=== PATIENT | female | born 1965 | race African-American/Black ===

== ENCOUNTER → 2016-10-05 | Outpatient (CLI) | payer OTHER ==
[2015-10-22 19:00] VITALS: BP 163/96
[~2016-10-05] MED LIST: ALBU0.63 IH; ATEN25TA PO; ESOM40CA PO; FLUT1DIS5 IH; FURO-68 PO; LEVO500T38 PO; LOSA100T6; METF500T4 PO; PRED50TA PO; PROAIR HFA8.5 GM IH; SPIR25TA3 PO; VENTOLIN HFA18 GM IH
--- NOTE | 2016-10-05 15:03 | RAD ---
DATE: 10/05/16 EXAM: DIGITAL DIAGNOSTIC LT HISTORY: History of right breast cancer status post mastectomy COMPARISON: Diagnostic left mammogram from 04/04/15 This study was interpreted with the benefit of Computerized Aided Detection (CAD). TECHNIQUE: Routine CC and MLO views of the left breast are obtained. FINDINGS: The breast tissue density is [B ] . shows scattered fibroglandular densities, category B. There are no dominant suspicious masses, suspicious microcalcifications or evidence of architectural distortion. Stable benign calcifications are present. The skin and nipples are intact IMPRESSION: Benign findings BI-RADS CATEGORY: 2 BENIGN FINDING(S) RECOMMENDED FOLLOW-UP: 12M 12 MONTH FOLLOW-UP PQRS compliance statement: Patient information was entered into a reminder system with a target due date for the next mammogram. Mammography is a sensitive method for finding small breast cancers, but it does not detect them all and is not a substitute for careful clinical examination. A negative mammogram does not negate a clinically suspicious finding and should not result in delay in biopsying a clinically suspicious abnormality. "Our facility is accredited by the [employer] Mammography Program."
== END | disposition home or self-care (01) ==
LOC: MAMMO 16:05
PROVIDERS: ATTEND Internal Medicine
DX: C50.411 Malignant neoplasm of upper-outer quadrant of right female breast (principal)
CPT/HCPCS: G0206; 77065

== ENCOUNTER → 2017-07-12 | Outpatient (CLI) | payer OTHER ==
[2015-10-22 19:00] VITALS: BP 163/96
[~2017-07-12] MED LIST changes: +CONTRAST GIVEN MC PRN; +IOHEXOL 240 MG/ML 50ML VIAL. PO ONE; +IOHEXOL 300 MG/ML 100ML VIAL. IV ONE; -LEVO500T38 PO; +LEVO500T59 PO
--- NOTE | 2017-07-12 12:11 | RAD ---
Indication: Staging breast carcinoma. Axial imaging through the chest, abdomen and pelvis was performed after the administration of intravenous contrast. CT chest: Postsurgical changes of right mastectomy are noted. There are multiple surgical clips in the right axilla. Small lymph nodes are identified in the left axilla. No definite internal mammary lymphadenopathy is seen. No mediastinal or hilar lymphadenopathy is detected. No pericardial or pleural fluid is identified. No parenchymal mass, infiltrate or nodule is seen. Impression: Postop changes of right mastectomy and right axillary lymph node dissection. No definite evidence of thoracic lymphadenopathy or pulmonary metastatic disease is seen. CT abdomen and pelvis: No discrete liver mass is identified. The gallbladder is unremarkable. The pancreas and spleen are unremarkable. No adrenal mass is detected. The kidneys are unremarkable. The aorta is nonaneurysmal. No central retroperitoneal or mesenteric lymphadenopathy is seen. The visualized small and large bowel loops are normal caliber. The appendix is unremarkable. There is no ascites. No pelvic lymphadenopathy is seen. Uterus, ovaries and bladder are unremarkable. The bony structures are unremarkable. Impression: Unremarkable CT of the abdomen and pelvis. There is no evidence of lymphadenopathy or metastatic disease. PQRS Compliance Statement: One or more of the following individualized dose reduction techniques were utilized for this examination: 1. Automated exposure control 2. Adjustment of the mA and/or kV according to patient size 3. Use of iterative reconstruction technique
--- NOTE | 2017-07-12 13:33 | RAD ---
Indication: Breast carcinoma. The patient was administered 25 mCi technetium 99m MDP intravenously and whole-body imaging was performed after a 3 hour delay. Comparison is made with prior bone scan from 03/09/2016. There is uptake of activity by the axial and appendicular skeleton. There is uptake by both kidneys with excretion into the urinary bladder. Uptake involving bilateral knees, predominantly involving the medial compartments is noted, likely on a degenerative basis. There are also degenerative changes bilateral shoulders and feet. Mild uptake lower lumbar spine is also seen, likely owing to degenerative facet changes. No abnormal focus of tracer accumulation is seen to suggest occult fracture or osseous metastatic disease. Impression: Chronic changes. No scintigraphic evidence of osseous metastatic disease is identified.
== END | disposition home or self-care (01) ==
LOC: NM 09:26
PROVIDERS: ATTEND Internal Medicine Hematology & Oncology
DX: C50.911 Malignant neoplasm of unspecified site of right female breast (principal); Z98.890 Other specified postprocedural states
CPT/HCPCS: 71260; 74177; 78306; 96374; A9503; Q9966; Q9967

== ENCOUNTER → 2017-11-11 | Outpatient (CLI) | payer OTHER | END | disposition home or self-care (01) | LOC: MAMMO 10:50 | DX: C50.411 Malignant neoplasm of upper-outer quadrant of right female breast (principal); Z85.3 Personal history of malignant neoplasm of breast | CPT/HCPCS: 77065 ==

== ENCOUNTER → 2018-01-19 | Outpatient (CLI) | payer OTHER ==
[2018-01-19 09:21] LABS: ADD MAN DIFF? NO
[2018-01-19 09:50] LABS: ALBUMIN 3.9 g/dL (3.4-5.0); ALBUMIN/GLOBULIN RATIO 0.9 (1.0-1.7); ALK PHOS 90 U/L (46-116); ALT (SGPT) 28 U/L (14-59); ANION GAP 5 (6-14); AST (SGOT) 19 U/L (15-37); BLOOD UREA NITROGEN 13 mg/dL (7-20); BUN/CREATININE RATIO 19 (6-20); CALCIUM 8.9 mg/dL (8.5-10.1); CARBON DIOXIDE 29 mmol/L (21-32); CHLORIDE 105 mmol/L (98-107); CHOLESTEROL 138 mg/dL (0-200); CREATININE 0.7 mg/dL (0.6-1.0); GFR 105.5; GLUCOSE 120 mg/dL (70-99); HDLC 44 mg/dL (40-60); LDLC 81 mg/dL (0-100); NON-HDL CHOLESTEROL 94 mg/dL (0-129); SODIUM 139 mmol/L (136-145); TOTAL BILIRUBIN 0.3 mg/dL (0.2-1.0); TOTAL PROTEIN 8.3 g/dL (6.4-8.2); TRIGLYCERIDES 67 mg/dL (0-150); VLDLC 13 mg/dL (0-40)
[2018-01-19 09:51] LABS: BASO % 1 % (0-3); CHOLESTEROL/HDL RATIO 3.1; EOS # 0.2 x10^3/uL (0.0-0.7); EOS % 4 % (0-3); HEMATOCRIT 43.2 % (36.0-47.0); HEMOGLOBIN 14.6 g/dL (12.0-15.5); LYMPH # 1.2 x10^3/uL (1.0-4.8); LYMPH % 25 % (24-48); MEAN CORPUSCULAR HEMOGLOBIN 30 pg (25-35); MEAN CORPUSCULAR HGB CONC 34 g/dL (31-37); MEAN CORPUSCULAR VOLUME 89 fL (79-100); MONO # 0.3 x10^3/uL (0.0-1.1); MONO % 6 % (0-9); NEUT # 2.9 x10^3uL (1.8-7.7); NEUT % 64 % (31-73); PLATELET COUNT 234 x10^3/uL (140-400); RED BLOOD COUNT 4.86 x10^6/uL (3.50-5.40); RED CELL DISTRIBUTION WIDTH 13.8 % (11.5-14.5); WHITE BLOOD COUNT 4.6 x10^3/uL (4.0-11.0)
[2018-01-19 10:26] LABS: HEPATITIS B SURFACE AG Nonreactive (Nonreactive)
[2018-01-19 10:53] LABS: HEPATITIS B CORE AB(IGM) Nonreactive (Nonreactive); HEPATITIS C AB Nonreactive (Nonreactive)
[2018-01-19 10:56] LABS: HEPATITIS A AB(IGM) Nonreactive (Nonreactive)
[2018-01-20 02:21] LABS: HEMOGLOBIN A1C 6.6 % (4.8-5.6)
[2018-01-21 09:18] LABS: CREAT RD UR 134.4 mg/dL (Not Estab.); MICRO CREAT RATIO 7.4 mg/g creat (0.0-30.0)
== END | disposition home or self-care (01) ==
LOC: LAB 09:05
DX: M79.661 Pain in right lower leg (principal); E11.9 Type 2 diabetes mellitus without complications; I10 Essential (primary) hypertension; J44.1 Chronic obstructive pulmonary disease with (acute) exacerbation; Z11.59 Encounter for screening for other viral diseases; Z85.3 Personal history of malignant neoplasm of breast
CPT/HCPCS: 36415; 80053; 80061; 82043; 82570; 83036; 84443; 85025; 86705; 86709; 86803; 87340; 93971

== ENCOUNTER 2018-12-23 17:36 | Emergency (ER) | payer OTHER ==
[~2018-12-23] VITALS: Ht 167.6 cm; Wt 113.4 kg
[~2018-12-23 17:36] MED LIST changes: +ALBU2.5V8 IH; -CONTRAST GIVEN MC PRN; -IOHEXOL 240 MG/ML 50ML VIAL. PO ONE; -IOHEXOL 300 MG/ML 100ML VIAL. IV ONE; +LOSA100T14; -LOSA100T6; +METF500T16 PO; -METF500T4 PO; -PROAIR HFA8.5 GM IH; -SPIR25TA3 PO; +SPIR25TA5 PO
[2018-12-23 17:38] VITALS: BP 202/100
[2018-12-23] MEDS ORDERED: NYSTATIN TOPICAL POWDER 15GM BOTTLE. TP STA (18:10)
[2018-12-23] MEDS ORDERED: NYST15PO9 TP (18:16)
--- NOTE | 2018-12-23 18:17 | PHYS DOC ---
Past Medical History Past Medical History: Asthma, Cancer, CHF, Diabetes-Type II, Hypertension, Other Additional Past Medical Histor: right breast ca,SLEEP APNEA (LUIS MELENDREZ APRN) Past Surgical History: Other Additional Past Surgical Histo: umbilical hernia, right mastectomy 2011, fibroid removal (LUIS MELENDREZ APRN) Alcohol Use: None Drug Use: None (LUIS MELENDREZ APRN) Adult General Chief Complaint Chief Complaint: SKIN RASH/ABSCESS HPI HPI Patient is a 53 year old female with history of diabetes type 2, hypertension, right breast cancer with mastectomy who presents to the ED today complaining of a rash underneath the left breast that she noted this morning. Patient denies any fever nausea vomiting. (LUIS MELENDREZ APRN) Review of Systems Review of Systems Constitutional: Denies fever or chills [] Musculoskeletal: Denies back pain or joint pain [] Integument: Reports rash underneath the left breast Neurologic: Denies headache, focal weakness or sensory changes [] All other systems were reviewed and found to be within normal limits, except as documented in this note. (LUIS MELENDREZ APRN) Current Medications Current Medications Current Medications Medications (Trade) Dose Ordered Sig/Gila Start Time Stop Time Status Last Admin Dose Admin Nystatin (Nystop) 1 zach 1X STAT 12/23/18 18:10 12/23/18 18:18 DC 12/23/18 18:35 1 ZACH (ESCOBAR SANCHEZ DO) Allergies Allergies Allergies Coded Allergies Type Severity Reaction Last Updated Verified No Known Drug Allergies 10/19/15 No (ESCOBAR SANCHEZ DO) Physical Exam Physical Exam Constitutional: Well developed, well nourished, no acute distress, non-toxic appearance. [] Skin: Right breast is missing, the skin underneath the left breast is white macerated and peeling consistent with fungal infection. Back: No tenderness, no CVA tenderness. [] Extremities: No tenderness, no cyanosis, no clubbing, ROM intact, no edema. [] Neurologic: Alert and oriented X 3, normal motor function, normal sensory function, no focal deficits noted. [] Psychologic: Affect normal, judgement normal, mood normal. [] (LUIS MELENDREZ APRN) Current Patient Data Vital Signs Vital Signs Date Time Temp Pulse Resp B/P (MAP) Pulse Ox O2 Delivery O2 Flow Rate FiO2 12/23/18 17:38 98.0 82 20 202/100 (134) 100 Room Air 98.0 (ESCOBAR SANCHEZ DO) EKG EKG [] (LUIS MELENDREZ APRN) Radiology/Procedures Radiology/Procedures [] (LUIS MELENDREZ APRN) Course & Med Decision Making Course & Med Decision Making Pertinent Labs and Imaging studies reviewed. (See chart for details) This is a 53-year-old female patient with history of diabetes type 2 presents today with a cutaneous candidiasis underneath the left breast. Patient was given nystatin powder in the ED. Also prescription provided. Instructed to try and leave the breast open to air when she is at home. Follow-up with PCP in 1-2 weeks. (LUIS MELENDREZ APRN) Dragon Disclaimer Dragon Disclaimer This electronic medical record was generated, in whole or in part, using a voice recognition dictation system. (LUIS MELENDREZ APRN) Departure Departure Impression: Primary Impression: Cutaneous candidiasis Disposition: HOME, SELF-CARE Condition: STABLE Referrals: FALGUNI MCKEON MD (PCP) follow up in 1 week Patient Instructions: Cutaneous Candidiasis Additional Instructions: You have yeast infection underneath the left breast. Keep the area clean and dry. Use the medication prescribed as twice a day. Follow-up with your doctor in 1-2 weeks. Scripts Nystatin (NYSTATIN) 15 Gm Powder 1 ZACH TP BID, #1 BOTTLE 1 Refill Prov: LUIS MELENDREZ APRN 12/23/18 Attending Signature Attending Signature I have reviewed the PA/FLIGHT OPERATIONS SPECIALIST's note and plan of care. I was available for consultation as needed during the patient's visit in the emergency department. I agree with the clinical impression, plan, and disposition. (ESCOBAR SANCHEZ DO) LUIS MELENDREZ APRN December 23, 2018 18:17 ESCOBAR SANCHEZ DO December 24, 2018 04:59
== END 2018-12-23 19:04 | disposition home or self-care (01) ==
LOC: ER 17:36
DX: B37.2 Candidiasis of skin and nail (principal); I11.0 Hypertensive heart disease with heart failure; I50.9 Heart failure, unspecified; E11.9 Type 2 diabetes mellitus without complications; J45.909 Unspecified asthma, uncomplicated
CPT/HCPCS: 99283

== ENCOUNTER → 2019-05-09 | Outpatient (CLI) | payer OTHER ==
[~2019-05-09] MED LIST changes: +NYST15PO9 TP
[2019-05-09 16:26] LABS: BASO % 1 % (0-3); EOS # 0.2 x10^3/uL (0.0-0.7); EOS % 4 % (0-3); HEMATOCRIT 36.2 % (36.0-47.0); HEMOGLOBIN 11.9 g/dL (12.0-15.5); LYMPH # 1.4 x10^3/uL (1.0-4.8); LYMPH % 27 % (24-48); MEAN CORPUSCULAR HEMOGLOBIN 28 pg (25-35); MEAN CORPUSCULAR HGB CONC 33 g/dL (31-37); MEAN CORPUSCULAR VOLUME 84 fL (79-100); MONO # 0.4 x10^3/uL (0.0-1.1); MONO % 8 % (0-9); NEUT # 3.2 x10^3/uL (1.8-7.7); NEUT % 61 % (31-73); PLATELET COUNT 238 x10^3/uL (140-400); RED CELL DISTRIBUTION WIDTH 15.1 % (11.5-14.5); WHITE BLOOD COUNT 5.2 x10^3/uL (4.0-11.0)
[2019-05-09 16:53] LABS: ALBUMIN 3.7 g/dL (3.4-5.0); ALBUMIN/GLOBULIN RATIO 0.8 (1.0-1.7); CALCIUM 9.6 mg/dL (8.5-10.1); GFR 69.7; POTASSIUM 4.2 mmol/L (3.5-5.1); TOTAL BILIRUBIN 0.3 mg/dL (0.2-1.0); TOTAL PROTEIN 8.1 g/dL (6.4-8.2)
== END | disposition home or self-care (01) ==
LOC: RAD 15:45
PROVIDERS: ATTEND Internal Medicine Hematology & Oncology
DX: I74.4 Embolism and thrombosis of arteries of extremities, unspecified (principal); Z17.1 Estrogen receptor negative status [ER-]; C50.412 Malignant neoplasm of upper-outer quadrant of left female breast
CPT/HCPCS: 36415; 80053; 85025; 86300

== ENCOUNTER → 2019-06-14 | Outpatient (CLI) | payer OTHER ==
[~2019-06-14] MED LIST changes: +CONTRAST GIVEN. MC PRN; +IOHEXOL 240 MG/ML 50ML VIAL. PO ONE; +IOHEXOL 300 MG/ML 100ML VIAL. IV ONE
--- NOTE | 2019-06-14 11:31 | RAD ---
CT of the chest, abdomen, and pelvis 06/14/2019 INDICATION: History of breast cancer. COMPARISON STUDY: CT of the chest, abdomen, and pelvis July 12, 2017 TECHNIQUE: Multidetector CT imaging of the chest, abdomen, and pelvis was performed following the administration of IV contrast FINDINGS: Heart size is normal. No pericardial effusion is seen. No pathologically enlarged mediastinal adenopathy is identified. Right mastectomy changes noted. Small lymph nodes in the right axilla with mild stranding are similar to prior study from July 2017.. The lungs are grossly clear without focal consolidation, infiltrate, or effusion. No pneumothorax. Solid viscera of the abdomen are unremarkable. No free fluid or free air is seen in the abdomen or pelvis. No bowel obstruction is seen. No acute inflammatory changes are identified involving the bowel. Visualized no acute osseous changes are seen. IMPRESSION: Grossly stable appearance of the chest abdomen and pelvis. No evidence of acute cardiopulmonary or intra-abdominal abnormality. CT DOSING PQRS STATEMENT: One or more of the following individualized dose reduction techniques were utilized for this examination: 1. Automated exposure control 2. Adjustment of the mA and/or kV according to patient size 3. Use of iterative reconstruction technique Electronically signed by: Aleksandar Gagnon MD (06/14/2019 11:28 AM) [id number]
--- NOTE | 2019-06-14 17:08 | RAD ---
EXAM: BONE SCINTIGRAPHY. HISTORY: Breast cancer. TECHNIQUE: Following the intravenous injection of 25 mCi of Tc-99m labeled methylene diphosphonate (MDP), delayed images of the whole body were performed in anterior and posterior projections. COMPARISON: Today's CT, 07/12/2017. FINDINGS: There are no foci of intense uptake suggestive of osseous metastatic disease. Uptake at both knees is consistent with osteoarthritis. Uptake at the ankles and feet is also degenerative. Uptake along the right wrist may be associated with the injection site or degenerative change. There is facet osteoarthritis bilaterally within the lower lumbar spine. This is also seen within the mid and lower thoracic spine on the right greater than left. A focus of uptake along the body of the mandible is likely odontogenic. IMPRESSION: 1. No scintigraphic evidence of osseous metastatic disease. 2. Degenerative changes as above. Electronically signed by: Alvarado Pepe MD (06/14/2019 5:05 PM) [facility]
== END | disposition home or self-care (01) ==
LOC: NM 09:11
PROVIDERS: ATTEND Internal Medicine Hematology & Oncology
DX: M19.072 Primary osteoarthritis, left ankle and foot (principal); M19.071 Primary osteoarthritis, right ankle and foot; M47.815 Spondylosis without myelopathy or radiculopathy, thoracolumbar region; Z85.3 Personal history of malignant neoplasm of breast; Z90.11 Acquired absence of right breast and nipple
CPT/HCPCS: 71260; 74177; 78306; A9503; Q9966; Q9967

== ENCOUNTER 2019-11-14 21:03 | Emergency (ER) | payer OTHER ==
[~2019-11-14] VITALS: Ht 167.6 cm; Wt 113.6 kg
[~2019-11-14 21:03] MED LIST changes: -CONTRAST GIVEN. MC PRN; -IOHEXOL 240 MG/ML 50ML VIAL. PO ONE; -IOHEXOL 300 MG/ML 100ML VIAL. IV ONE
[2019-11-14 21:20] VITALS: BP 193/86
[2019-11-14] MEDS ORDERED: ACYC800T PO (21:33)
[2019-11-14] MEDS ORDERED: TRAM50TA PO (21:33)
[2019-11-14] MEDS ORDERED: DIPH25CA58 PO (21:33)
--- NOTE | 2019-11-14 21:33 | PHYS DOC ---
Past Medical History Past Medical History: Asthma, Cancer, CHF, Diabetes-Type II, Hypertension, Other Additional Past Medical Histor: right breast ca,SLEEP APNEA Past Surgical History: Other Additional Past Surgical Histo: umbilical hernia, right mastectomy 2012, fibroid removal Smoking Status: Never Smoker Alcohol Use: None Drug Use: None General Adult EDM: Chief Complaint: SKIN RASH/ABSCESS HPI: HPI: Patient is a 54 year old female who presents with a blister type rash on her left lower abdomen that began yesterday. Patient denies any fever. Review of Systems: Review of Systems: Constitutional: Denies fever or chills. [] GI: Denies abdominal pain, nausea, vomiting, bloody stools or diarrhea. [] : Denies dysuria. [] Musculoskeletal: Denies back pain or joint pain. [] Integument: Reports rash Neurologic: Denies headache, focal weakness or sensory changes. [] Lymphatic: Denies swollen glands. [] Psychiatric: Denies depression or anxiety. [] Heart Score: Risk Factors: Risk Factors: DM, Current or recent (<one month) smoker, HTN, HLP, family history of CAD, obesity. Risk Scores: Score 0 - 3: 2.5% MACE over next 6 weeks - Discharge Home Score 4 - 6: 20.3% MACE over next 6 weeks - Admit for Clinical Observation Score 7 - 10: 72.7% MACE over next 6 weeks - Early Invasive Strategies Allergies: Allergies: Allergies Coded Allergies Type Severity Reaction Last Updated Verified No Known Drug Allergies 10/19/15 No Physical Exam: PE: Constitutional: Well developed, well nourished, no acute distress, non-toxic appearance. [] Skin: Warm, dry, small amount of blister type rash on the left lower abdomen consistent with shingles. Back: No tenderness, no CVA tenderness. [] Extremities: No tenderness, no cyanosis, no clubbing, ROM intact, no edema. [] Neurologic: Alert and oriented X 3, normal motor function, normal sensory function, no focal deficits noted. [] Psychologic: Affect normal, judgement normal, mood normal. [] Current Patient Data: Vital Signs: Vital Signs Date Time Temp Pulse Resp B/P (MAP) Pulse Ox O2 Delivery O2 Flow Rate FiO2 11/14/19 21:20 99.3 119 18 193/86 (121) 97 Room Air 99.3 EKG: EKG: [] Radiology/Procedures: Radiology/Procedures: [] Course & Med Decision Making: Course & Med Decision Making Pertinent Labs and Imaging studies reviewed. (See chart for details) This is a 54-year-old female patient with shingles. Discharged on acyclovir first dose given in the ED and tramadol for pain. Also requesting rx for UTI-cephalaxin given Dragon Disclaimer: Dragon Disclaimer: This electronic medical record was generated, in whole or in part, using a voice recognition dictation system. Departure Departure Impression: Primary Impression: Shingles rash Qualified Codes: B02.9 - Zoster without complications Disposition: HOME, SELF-CARE Condition: STABLE Referrals: FALGUNI MCKEON MD (PCP) follow up in 1-2 weeks Patient Instructions: Shingles, [id number] Additional Instructions: You have shingles. Take the prescribed medications as ordered. Follow-up with your doctor in 1 to 2 weeks. Scripts Cephalexin (CEPHALEXIN) 500 Mg Tablet 1 TAB PO BID, #14 TAB Prov: LUIS MELENDREZ APRN 11/14/19 Diphenhydramine Hcl (BENADRYL) 25 Mg Capsule 1 CAP PO Q6HRS PRN for RASH, #30 CAP 0 Refills Prov: LUIS MELENDREZ APRN 11/14/19 Tramadol Hcl (TRAMADOL HCL) 50 Mg Tablet 50 MG PO Q6HRS PRN for PAIN, #30 TAB Prov: LUIS MELENDREZ APRN 11/14/19 Acyclovir (ACYCLOVIR) 800 Mg Tablet 1 TAB PO 5X, #50 TAB Prov: LUIS MELENDREZ APRN 11/14/19 LUIS MELENDREZ APRN Nov 14, 2019 21:33
[2019-11-14] MEDS ORDERED: CEPH500T PO (21:44)
[2019-11-14] MEDS ORDERED: CEPHALEXIN 250 MG CAPSULE. ONE (21:46)
[2019-11-14] MEDS ORDERED: traMADol 50 MG TABLET PO ONE (22:00)
[2019-11-14] MEDS ORDERED: predniSONE 10 MG TABLET PO ONE (22:00)
[2019-11-14] MEDS ORDERED: ACYCLOVIR 200 MG CAPSULE. PO ONE (22:00)
[2019-11-14] MEDS ORDERED: CEPHALEXIN 250 MG CAPSULE. PO ONE (22:30)
== END 2019-11-14 22:05 | disposition home or self-care (01) ==
LOC: ER 21:03
DX: B02.9 Zoster without complications (principal); R21 Rash and other nonspecific skin eruption; J45.909 Unspecified asthma, uncomplicated; I11.0 Hypertensive heart disease with heart failure; I50.9 Heart failure, unspecified; Z85.3 Personal history of malignant neoplasm of breast; Z90.89 Acquired absence of other organs; Z98.890 Other specified postprocedural states
CPT/HCPCS: 99284; J7512

== ENCOUNTER → 2020-01-29 | Outpatient (CLI) | payer OTHER ==
[~2020-01-29] MED LIST changes: +ACYC800T PO; +CEPH500T PO; +DIPH25CA58 PO; +TRAM50TA PO
[2020-01-29 13:53] LABS: BASO % 0 % (0-3); EOS # 0.1 x10^3/uL (0.0-0.7); EOS % 3 % (0-3); HEMATOCRIT 36.3 % (36.0-47.0); HEMOGLOBIN 12.1 g/dL (12.0-15.5); LYMPH # 1.1 x10^3/uL (1.0-4.8); LYMPH % 28 % (24-48); MEAN CORPUSCULAR HEMOGLOBIN 30 pg (25-35); MEAN CORPUSCULAR HGB CONC 33 g/dL (31-37); MEAN CORPUSCULAR VOLUME 88 fL (79-100); MONO # 0.3 x10^3/uL (0.0-1.1); MONO % 8 % (0-9); NEUT # 2.4 x10^3/uL (1.8-7.7); NEUT % 61 % (31-73); PLATELET COUNT 239 x10^3/uL (140-400); RED CELL DISTRIBUTION WIDTH 15.3 % (11.5-14.5); WHITE BLOOD COUNT 3.9 x10^3/uL (4.0-11.0)
[2020-01-29 14:05] LABS: ALBUMIN 3.7 g/dL (3.4-5.0); ALBUMIN/GLOBULIN RATIO 0.9 (1.0-1.7); CREATININE 0.7 mg/dL (0.6-1.0); GFR 104.7; POTASSIUM 3.8 mmol/L (3.5-5.1); TOTAL BILIRUBIN 0.4 mg/dL (0.2-1.0); TOTAL PROTEIN 7.8 g/dL (6.4-8.2)
[2020-01-29 14:07] LABS: CHOLESTEROL/HDL RATIO 3.3
[2020-01-30 02:08] LABS: HEMOGLOBIN A1C 6.7 % (4.8-5.6)
[2020-01-30 02:08] LABS: CREAT RD UR 139.9 mg/dL (Not Estab.); MICROALB RD UR 47.6 ug/mL (Not Estab.)
== END | disposition home or self-care (01) ==
LOC: LAB 13:16
PROVIDERS: ATTEND Internal Medicine
DX: E11.9 Type 2 diabetes mellitus without complications (principal)
CPT/HCPCS: 36415; 80053; 80061; 82043; 82570; 83036; 84443; 85025

== ENCOUNTER → 2020-04-10 | Outpatient (CLI) | payer OTHER ==
[2020-04-10 11:34] LABS: ALBUMIN 3.8 g/dL (3.4-5.0); ALBUMIN/GLOBULIN RATIO 0.9 (1.0-1.7); CALCIUM 9.3 mg/dL (8.5-10.1); CREATININE 0.7 mg/dL (0.6-1.0); GFR 104.7; TOTAL BILIRUBIN 0.3 mg/dL (0.2-1.0); TOTAL PROTEIN 8.2 g/dL (6.4-8.2)
== END | disposition home or self-care (01) ==
LOC: LAB 10:46
PROVIDERS: ATTEND Internal Medicine Cardiovascular Disease
DX: I10 Essential (primary) hypertension (principal)
CPT/HCPCS: 36415; 80053; 83880

== ENCOUNTER → 2020-06-25 | Outpatient (CLI) | payer OTHER ==
--- NOTE | 2020-06-26 10:01 | RAD ---
DATE: 06/25/2020 2:35 PM EXAM: MAMMO ALIVIA SCREEN LT HISTORY: Screening Right mastectomy 2011 for breast cancer. COMPARISON: 12/12/2018 CC and MLO views of the left breast were performed. In addition, breast tomosynthesis was performed in CC and MLO projections. This study was interpreted with the benefit of Computerized Aided Detection (CAD). FINDINGS: Breast Density: FATTY The Breast Parenchyma is primarily fatty replaced. Breast parenchyma level density A. No suspicious masses, microcalcifications or architectural distortion is present to suggest malignancy. The visualized axilla is unremarkable. IMPRESSION: No mammographic evidence of malignancy. BI-RADS CATEGORY: 1 NEGATIVE RECOMMENDED FOLLOW-UP: 12M 12 MONTH FOLLOW-UP Annual screening mammography is recommended, unless clinically indicated sooner based on symptoms or change in physical exam. PQRS compliance statement: Patient information was entered into a reminder system with a target due date for the next mammogram. Mammography is a sensitive method for finding small breast cancers, but it does not detect them all and is not a substitute for careful clinical examination. A negative mammogram does not negate a clinically suspicious finding and should not result in delay in biopsying a clinically suspicious abnormality. "Our facility is accredited by the [employer] Mammography Program."
== END ==
LOC: MAMMO 14:26
PROVIDERS: ATTEND Internal Medicine Hematology & Oncology
DX: Z12.31 Encounter for screening mammogram for malignant neoplasm of breast (principal)
CPT/HCPCS: 77063; 77067

== ENCOUNTER → 2020-09-13 | Outpatient (CLI) | payer OTHER ==
[~2020-09-13] MED LIST changes: -ACYC800T PO; +ACYC800T88 PO
== END ==
LOC: LAB 12:50
PROVIDERS: ATTEND Internal Medicine Pulmonary Disease
DX: U07.1 COVID-19 (principal)
CPT/HCPCS: U0003

== ENCOUNTER 2021-03-01 21:25 | Emergency (ER) | payer OTHER ==
[~2021-03-01] VITALS: Ht 162.6 cm; Wt 125.0 kg
[2021-03-01 21:43] VITALS: BP 178/109
--- NOTE | 2021-03-01 21:44 | PHYS DOC ---
Past Medical History Past Medical History: Asthma, Cancer, CHF, Diabetes-Type II, Hypertension, Other Additional Past Medical Histor: right breast ca,SLEEP APNEA (MEREDITH BE M WET SANDER) Past Surgical History: Other Additional Past Surgical Histo: umbilical hernia, right mastectomy 2011, fibroid removal (MEREDITH BE M WET SANDER) Smoking Status: Never Smoker Alcohol Use: None Drug Use: None (MEREDITH BE WET SANDER) General Adult EDM: Chief Complaint: HAND PROBLEM HPI: HPI: Patient is a 55 year old female who presents with was working here on Tuesday when she got her hand smashed between a tray and a cart. She states she is having pain in the left hand with swelling. She states that there was some numbness and tingling is gone better. She states the swelling has actually gotten better. She states been using ice and had it wrapped. She states that is throbbing. She rates her pain 8 out of 10. Denies coolness to the extremity, focal weakness. Patient has a history of hypertension, diabetes, breast cancer, sleep apnea, asthma, CHF, umbilical hernia surgery, fibroid removal surgery. (MEREDITH BE M WET SANDER) Review of Systems: Review of Systems: Constitutional: Denies fever or chills. [] Eyes: Denies change in visual acuity. [] HENT: Denies nasal congestion or sore throat. [] Respiratory: Denies cough or shortness of breath. [] Cardiovascular: Denies chest pain or edema. [] GI: Denies abdominal pain, nausea, vomiting, bloody stools or diarrhea. [] : Denies dysuria. [] Musculoskeletal: Denies back pain or joint pain. [] Integument: Denies rash. [] Neurologic: Denies headache, focal weakness or sensory changes. [] Endocrine: Denies polyuria or polydipsia. [] Lymphatic: Denies swollen glands. [] Psychiatric: Denies depression or anxiety. [] (MEREDITH BE WET SANDER) Heart Score: C/O Chest Pain: No Risk Factors: Risk Factors: DM, Current or recent (<one month) smoker, HTN, HLP, family history of CAD, obesity. Risk Scores: Score 0 - 3: 2.5% MACE over next 6 weeks - Discharge Home Score 4 - 6: 20.3% MACE over next 6 weeks - Admit for Clinical Observation Score 7 - 10: 72.7% MACE over next 6 weeks - Early Invasive Strategies (MEREDITH BE APRN) Allergies: Allergies: Allergies Coded Allergies Type Severity Reaction Last Updated Verified No Known Drug Allergies 10/19/15 No (MEREDITH BE APRN) Physical Exam: PE: Constitutional: Well developed, well nourished, no acute distress, non-toxic appearance. [] HENT: Normocephalic, atraumatic, bilateral external ears normal, oropharynx moist, no oral exudates, nose normal. [] Eyes: PERRLA, EOMI, conjunctiva normal, no discharge. [] Neck: Normal range of motion, no tenderness, supple, no stridor. [] Cardiovascular:Heart rate regular rhythm, no murmur [] Lungs & Thorax: Bilateral breath sounds clear to auscultation [] Abdomen: Bowel sounds normal, soft, no tenderness, no masses, no pulsatile masses. [] Skin: Warm, dry, no erythema, no rash. [] Back: No tenderness, no CVA tenderness. [] Extremities: Left dorsal hand tenderness, no cyanosis, no clubbing, left hand ROM intact but limited, 2-3+ edema. [] Neurologic: Alert and oriented X 3, normal motor function, normal sensory function, no focal deficits noted. [] Psychologic: Affect normal, judgement normal, mood normal. [] (MEREDITH BE APRN) EKG: EKG: [] (MEREDITH BE APRN) Radiology/Procedures: Radiology/Procedures: [] Impression: [facility] [address] [place], [place] [id number] IMAGING REPORT Signed PATIENT: JOE MANCERA ACCOUNT: [id number] : 1965 LOCATION: ER AGE: 55 SEX: F EXAM STATUS: PRE ER ORD. PHYSICIAN: MEREDITH BE APRN REASON: SWELLING AND CRUSHING INJURY PROCEDURE: HAND LEFT 3V Exam: Left hand 3 views INDICATION: Swelling and pressure injury TECHNIQUE: Frontal, lateral oblique views of the left hand Comparisons: None FINDINGS: Bone mineralization is normal. No acute or healed fractures. Soft tissue swelling overlying the metacarpals. Joint spaces are well-maintained. IMPRESSION: Soft tissue swelling overlying the metacarpals without displaced fracture identified. Electronically signed by: Noemi Okeefe MD (03/01/2021 10:13 PM) [facility] DICTATED and SIGNED BY: NOEMI OKEEFE MD DATE: 03/01/21 [id number] 0 (MEREDITH BE APRN) Course & Med Decision Making: Course & Med Decision Making Pertinent Labs and Imaging studies reviewed. (See chart for details) See HPI. Radial pulse strong are present. Tenderness to left dorsal hand with 2+ swelling. She can make 75% of the fist. No deformity or joint laxity. Cap refill less than 2 seconds. Skin pink warm and dry. Alert and oriented x4. Ambulatory steady gait. Speaks full clear sentences. [] (MEREDITH BE APRN) Dragon Disclaimer: Dragon Disclaimer: This electronic medical record was generated, in whole or in part, using a voice recognition dictation system. (MEREDITH BE APRN) Departure Departure Impression: Primary Impression: Hand crush injury Qualified Codes: S67.22XA - Crushing injury of left hand, initial encounter Disposition: HOME / SELF CARE / HOMELESS Condition: STABLE Referrals: FALGUNI MCKEON MD (PCP) SOLO KAHN MD Patient Instructions: Crush Injury, Fingers or Toes, Hand Contusion Additional Instructions: Follow-up with primary care provider. Use ice and elevation. Rest the extremity if you can. Take ibuprofen for your pain. Attending Signature Attending Signature I have reviewed the PA/FARM MANAGEMENT AGENT's note and plan of care. I was available for consultation as needed during the patient's visit in the emergency department. I agree with the clinical impression, plan, and disposition. (ESCOBAR SANCHEZ DO) MEREDITH BE APRN Mar 01, 2021 21:44 ESCOBAR SANCHEZ DO Mar 01, 2021 22:58
--- NOTE | 2021-03-01 22:15 | RAD ---
Exam: Left hand 3 views INDICATION: Swelling and pressure injury TECHNIQUE: Frontal, lateral oblique views of the left hand Comparisons: None FINDINGS: Bone mineralization is normal. No acute or healed fractures. Soft tissue swelling overlying the metac arpals. Joint spaces are well-maintained. IMPRESSION: Soft tissue swelling overlying the metacarpals without displaced fracture identified. Electronically signed by: Noemi Drake MD (03/01/2021 10:13 PM) [facility]
== END 2021-03-01 22:28 | disposition home or self-care (01) ==
LOC: ER 21:25
DX: S67.22XA Crushing injury of left hand, initial encounter (principal); I11.0 Hypertensive heart disease with heart failure; I50.9 Heart failure, unspecified; E11.9 Type 2 diabetes mellitus without complications; J45.909 Unspecified asthma, uncomplicated; W23.0XXA Caught, crushed, jammed, or pinched between moving objects, initial encounter; Y93.89 Activity, other specified; Y92.89 Other specified places as the place of occurrence of the external cause; Y99.8 Other external cause status
CPT/HCPCS: 73130; 99283

== ENCOUNTER → 2021-06-23 | Outpatient (CLI) | payer OTHER ==
--- NOTE | 2021-06-24 13:24 | RAD ---
UNILATERAL LEFT DIGITAL SCREENING 2-D AND 3-D MAMMOGRAM INDICATION: Routine screening. History of right mastectomy in 2011 COMPARISON: June 25, 2020, December 12, 2018, October 05, 2016 February 25, 2014 Interpretation was made using CAD. FINDINGS: Breast Density: The breasts are almost entirely fatty. LEFT BREAST: No suspicious masses, calcifications or areas of architectural distortion are seen. IMPRESSION: 1. No imaging evidence of malignancy. ASSESSMENT: BI-RADS 1. Negative. RECOMMENDATION: Routine annual screening mammogram. The facility will notify the patient of the results via mail. Patient information will be entered int o the mammography reminder system with a target recall date for the next mammogram. A reminder letter will be generated by the facility. Electronically signed by: Lexi Paige MD (06/24/2021 1:21 PM) [email or web address]
== END ==
LOC: MAMMO 14:39
PROVIDERS: ATTEND Internal Medicine
DX: Z12.31 Encounter for screening mammogram for malignant neoplasm of breast (principal)
CPT/HCPCS: 77063; 77067

== ENCOUNTER → 2021-09-11 | Outpatient (CLI) | payer OTHER ==
[2021-09-11 09:27] LABS: BASO % 0 % (0-3); EOS # 0.1 x10^3/uL (0.0-0.7); EOS % 2 % (0-3); HEMATOCRIT 37.7 % (36.0-47.0); LYMPH # 1.2 x10^3/uL (1.0-4.8); LYMPH % 21 % (24-48); MEAN CORPUSCULAR HEMOGLOBIN 28 pg (25-35); MEAN CORPUSCULAR HGB CONC 32 g/dL (31-37); MEAN CORPUSCULAR VOLUME 89 fL (79-100); MONO # 0.4 x10^3/uL (0.0-1.1); MONO % 7 % (0-9); NEUT % 70 % (31-73); PLATELET COUNT 252 x10^3/uL (140-400); RED BLOOD COUNT 4.24 x10^6/uL (3.50-5.40); RED CELL DISTRIBUTION WIDTH 15.8 % (11.5-14.5); WHITE BLOOD COUNT 5.7 x10^3/uL (4.0-11.0)
[2021-09-11 09:33] LABS: ALBUMIN 3.3 g/dL (3.4-5.0); ALBUMIN/GLOBULIN RATIO 0.8 (1.0-1.7); CALCIUM 8.8 mg/dL (8.5-10.1); CREATININE 0.9 mg/dL (0.6-1.0); GFR 77.8; POTASSIUM 4.1 mmol/L (3.5-5.1); TOTAL BILIRUBIN 0.3 mg/dL (0.2-1.0); TOTAL PROTEIN 7.5 g/dL (6.4-8.2)
[2021-09-11 09:36] LABS: CHOLESTEROL/HDL RATIO 2.6
[2021-09-11 09:38] LABS: BILIRUBIN,URINE SMALL (NEG); CLARITY,URINE CLEAR; COLOR,URINE AMBER; NITRITE,URINE NEGATIVE (NEG); PROTEIN,URINE 30 mg/dL (NEG-TRACE)
[2021-09-11 09:52] LABS: HYALINE CASTS, URINE OCCASIONAL /HPF
[2021-09-11 09:53] LABS: BACTERIA,URINE 0 /HPF (0-FEW); RBC,URINE 0 /HPF (0-2)
[2021-09-11 22:08] LABS: CREAT RD UR 337.3 mg/dL (Not Estab.); MICROALB RD UR 57.1 ug/mL (Not Estab.)
[2021-09-12 00:09] LABS: HEMOGLOBIN A1C 7.9 % (4.8-5.6)
== END ==
LOC: LAB 08:51
PROVIDERS: ATTEND Internal Medicine
DX: Z00.00 Encounter for general adult medical examination without abnormal findings (principal); E11.9 Type 2 diabetes mellitus without complications
CPT/HCPCS: 80053; 80061; 81001; 82043; 82570; 83036; 84443; 85025